=== PATIENT | female | born 1980 | race Caucasian/White ===

== ENCOUNTER 2017-03-25 16:36 | Emergency (ER) | payer BC, OTHER ==
[~2017-03-25] VITALS: Ht 162.6 cm; Wt 64.0 kg
[2017-03-25 17:24] LABS: HEMATOCRIT 41.8 % (34.6-47.8); HEMOGLOBIN 14.1 g/dL (11.7-16.4); WHITE BLOOD COUNT 8.8 x10^3/uL (3.4-10)
[2017-03-25 17:32] LABS: BLOOD UREA NITROGEN 13 mg/dL (7-18)
[2017-03-25 17:44] VITALS: BP 150/110
== END 2017-03-25 17:59 | disposition home or self-care (01) ==
LOC: ED 17:53
DX: B96.89 Other specified bacterial agents as the cause of diseases classified elsewhere (principal); J20.8 Acute bronchitis due to other specified organisms
CPT/HCPCS: 36415; 71020; 80048; 82040; 85025; 93005; 99285